=== PATIENT | male | born 1985 | race Two or more races ===

== ENCOUNTER → 2017-10-29 | Emergency (ER) | payer OTHER ==
[~2017-10-29] VITALS: Ht 180.3 cm; Wt 113.4 kg
== END | disposition home or self-care (01) ==
LOC: ER 10:28
DX: M62.830 Muscle spasm of back (principal); M54.5 Low back pain

== ENCOUNTER → 2018-06-24 | Emergency (ER) | payer OTHER ==
[~2018-06-24] VITALS: Ht 177.8 cm; Wt 103.9 kg
== END | disposition left against medical advice (07) ==
LOC: ER 22:09
DX: Z53.20 Procedure and treatment not carried out because of patient's decision for unspecified reasons (principal)